=== PATIENT | male | born 1935 | race Native Hawaiian/Other Pacific Islander ===

== ENCOUNTER 2021-02-18 15:20 | Inpatient (IN) | payer OTHER ==
[~2021-02-18] VITALS: Ht 165.1 cm; Wt 64.9 kg
--- NOTE | 2021-02-18 17:18 | NUR ---
ELISA FROM SPEECH THERAPY IN ROOM WITH PT AT THIS TIME.
[2021-02-18 17:41] VITALS: BP 142/76; TEMP 97.4; Ht 165.1 cm; Wt 64.9 kg
[2021-02-18] MEDS ORDERED: AMLODIPINE BESYLATE PO (19:28)
[2021-02-18] MEDS ORDERED: ASA LOW DOSE81 MG PO (19:29)
[2021-02-18] MEDS ORDERED: LIPITOR40 MG PO (19:30)
[2021-02-18] MEDS ORDERED: CLOP75TA2 PO (19:31)
[2021-02-18] MEDS ORDERED: CARB25TA29 PO (19:31)
[2021-02-18] MEDS ORDERED: LISI20TA11 PO (19:32)
[2021-02-18] MEDS ORDERED: HYDR25TA60 PO (19:32)
[2021-02-18] MEDS ORDERED: KLOR-CON M1010 MEQ PO (19:33)
[2021-02-18] MEDS ORDERED: SPIR50TA8 PO (19:34)
[2021-02-18] MEDS ORDERED: AZILECT1 MG PO (19:35)
[2021-02-18] MEDS ORDERED: MELATONIN10 M1 PO (19:36)
[2021-02-18] MEDS ORDERED: CINNAMON500 MG PO (19:37)
[2021-02-18] MEDS ORDERED: VIT B12/FA PO (19:38)
[2021-02-18] MEDS ORDERED: VITAMIN D PO (19:39)
[2021-02-18] MEDS ORDERED: IRON (FERROUS S50 MG PO (19:41)
[2021-02-18 20:00] VITALS: BP 102/59; TEMP 98.4
--- NOTE | 2021-02-19 06:07 | NUR ---
New Swing Bed patient and is on a Mechanical Soft diet plan, diagnosis of Cerob infr C/T unsp. acclson, stenos, CVA R, PA Adm., Mechanical Thrombectomy, 5'5" at 157.7 and BMI at 26.2 and is overweiht and kcal needs for 65" = 136+/-10% (122 to 150 lbs.) and kcal needs x 25 to 40 = 1500 to 2500 kcal/day, protein needs x .8 to 1.5 = 49 to 93 grams per day and fluids for IBW x 25 to 40 = 1500 to 2500 ml/cc per day. Diagnosis of HTN, Hyperlipidemia, Parkinson's Disease and is a 85YOM and was transferred from [facility] in [place], [place] Per MD's notes is 5'9" at 174 and BMI = 25.69 and is overweight and IBW for 69" = 160+/-10% (144 to 176 lbs.) anf kcal needs x 25 to 40 = 1800 to 2900 ml/cc per day, protein needs x .8 to 1.5 = 58 to 109 grams per day and fluids for IBW = x 25 to 40 = 1800 to 2900 ml/cc per dya. Has arthritis, left facial drop, [facility] CVA, weakness and PT and OT are working wiht the D1Gnet and is on lasix, prophylasix, lipitor, cinnamon, Vitamin D, KCl, Plavix, FESO4 and etc... and RD reviewed all medications and labs and whole chart. K 3/4 depressed and see Labs in EMR for more inforamtion. RD Recommendations: 1-Monitor Labs 2-2 heights and weights may want to clarify height and weight 3-May want to add Low Fat Low Sodium to the diet order if the patient will follow and if will not follow 3-Have a dietary refusal form signed 4-Add a MVI if not eating 75% of meals 5-Add a supplement if not eating 75% of meals 6-Add an appetite stimulant if not eating 75% of meals 7-Add Vitamin C 500 mg BID 8-Add ZNSO4 220 mg per day and d/c in 14 days
[2021-02-19 08:00] VITALS: BP 141/69; TEMP 98.3
--- NOTE | 2021-02-19 08:30 | NUR ---
PATIENT REQUESTED TO HAVE AZILECT DOSE RETIMED FOR 6 PM WHEN HE NORMALLY TAKES IT.
--- NOTE | 2021-02-19 09:04 | NUR ---
PT CONDITION AND CHART REVIEWED WITH NO NEW ORDERS GIVEN AT THIS TIME
--- NOTE | 2021-02-19 15:00 | NUR ---
PT/OT AT BEDSIDE. PATIENT AMBULATED TO CHAIR WITH MINIMAL ASSISTANCE.
--- NOTE | 2021-02-19 15:45 | NUR ---
PATIENT TRANSFERRED BACK TO BED WITH MINIMAL ASSISTANCE. PATIENT TOLERATED WELL.
[2021-02-19 19:48] VITALS: BP 94/54; TEMP 97.3
--- NOTE | 2021-02-20 05:00 | NUR ---
PATIENT RESTING , SPOUSE AT BEDSIDE. PATIENT DENIES ANY PAIN OR DISCOMFORT
--- NOTE | 2021-02-20 06:28 | NUR ---
EYE CARE COMPLETE ON PATIENT. EYE DROPS APPLIED
--- NOTE | 2021-02-20 08:15 | NUR ---
PT AT BEDSIDE. PATIENT IN CHAIR PEDALING STATIONARY BIKE. PATIENT TOLERATED WELL. AT BEDSIDE. MORNING MEDICATIONS GIVEN CRUSHED IN PUDDING. CALL LIGHT WITHIN REACH. THERAPY TO LEAVE PATIENT IN CHAIR.
[2021-02-20 08:30] VITALS: BP 147/69; TEMP 98.3
--- NOTE | 2021-02-20 11:00 | NUR ---
PATIENT READY TO GO BACK TO BED. PATIENT TRANSFERRED WITH MINIMAL ASSISTANCE. PATIENT BALANCE SLIGHTLY UNSTEADY. PATIENT RESTING IN BED. NAD NOTED.
--- NOTE | 2021-02-20 18:05 | NUR ---
PATIENT RESTING IN BED. NAD NOTED. WILL CONTINUE TO MONITOR.
[2021-02-20 19:56] VITALS: BP 114/55; TEMP 98
[2021-02-21 08:00] VITALS: BP 158/63; TEMP 98.1
--- NOTE | 2021-02-21 15:45 | NUR ---
WHILE ASSISTING PT FROM BEDSIDE COMMODE, OBSERVED SPOTS OF BRIGHT RED BLOOD COMING FROM PENIS WHEN PT VOIDED. PT C/O NO PAIN OR DISCOMFORT. ALERT AND ORIENTED. AT BEDSIDE AT STATED THAT PT HAD THIS ISSUE WHEN HE WAS IN HOSPITAL IN [place]. WHILE IN [place] PT HAD HEMATURIA R/T LAWLER CATH. DR ELISE NOTIFIED AND ORDERED A CBC/BMP IN AM AND CONTINUE TO MONITOR PT AND IF BLEEDING CONTINUES OR WORSENS TO NOTIFY HER. 4X4 GAUZE APPLIED TO DECREASE BLEEDING. NAD NOTED.
[2021-02-21 20:17] VITALS: BP 123/66; TEMP 97.4
--- NOTE | 2021-02-21 21:00 | NUR ---
ENTERED PATIENT'S ROOM AT THIS TIME. PATIENT LYING IN BED WITH EYES CLOSED. IN LEFT SIDE-LYING POSITION. RESPIRATIONS EVEN AND UNLABORED. NAD NOTED. IN CHAIR AT BEDSIDE. PM MEDICATIONS MIXED IN APPLESAUCE. ASSISTING PATIENT TO STANDING POSITION WITH WALKER TO USE URINAL. TWO PERSON EXTENSIVE ASSIST REQUIRED. PATIENT HAS UNSTEADY GAIT WITH WEAKNESS TO LEFT UPPER AND LOWER EXTREMITY. SCANT AMOUNT OF HEMATURIA NOTED- WILL CONTINUE TO MONITOR. ASSISTED PATIENT TO SIT UP ON SIDE OF BED. CHECKED INSIDE OF PATIENT'S MOUTH FOR ANY POCKETING PER 'S REQUEST. PATIENT TOLERATED MEDS TAKEN IN APPLESAUCE. ASSISTED TO BED. PATIENT ABLE TO PERFORM BED MOBILITY WITH COACHING. NAD NOTED. FOUR SIDE RAILS UP PER 'S REQUEST. BED LOCKED AND IN LOWEST POSITION. CALL LIGHT WITHIN REACH.
--- NOTE | 2021-02-22 01:30 | NUR ---
PATIENT RESTING QUIETLY IN BED. RESPIRATIONS EVEN AND UNLABORED. EYES CLOSED. NAD NOTED. BED LOCKED AND IN LOWEST POSITION. CALL LIGHT WITHIN REACH. SLEEPING AT BEDSIDE.
--- NOTE | 2021-02-22 04:00 | NUR ---
IN TO CHECK ON PATIENT. PATIENT ATTEMPTING TO PULL HIMSELF UP OUT OF BED. I TALKED WITH HIM AND ADJUSTED HIS LINENS AND PILLOWS. PATIENT NOW LYING IN BED WITH EYES CLOSED. NAD NOTED. AWAKE AND AT BEDSIDE. I ENCOURAGED HER TO LET US USE THE BED ALARM. SHE AGREED. BED ALARM TURNED ON FOR PATIENT'S SAFETY. CALL LIGHT WITHIN REACH.
--- NOTE | 2021-02-22 05:00 | NUR ---
ASSISTED PATIENT AND WITH URINAL. BRIEF CHANGED. SMALL BM NOTED. NO HEMATURIA NOTED AT THIS TIME. BED LOCKED AND IN LOWEST POSITON. CALL LIGHT WITHIN REACH.
[2021-02-22 05:37] LABS: PLATELET COUNT 162 K/uL (142-355)
[2021-02-22 05:53] LABS: POTASSIUM 3.7 mmol/L (3.6-5.2)
[2021-02-22 08:00] VITALS: BP 126/80; TEMP 98
--- NOTE | 2021-02-22 13:11 | NUR ---
I met with patient and his on and they are very pleased with the program and the meals and no food preferences stated, all meals are delicious per the . I also met with the IDT meeting and was asleep and the stated she was please with all. She loves to talk and share.
--- NOTE | 2021-02-22 17:08 | NUR ---
PATIENT THROUGHOUT THE DAY HAS BEEN ABLE TO GET UP TO THE BEDSIDE TO A STANDING POSITION WHILE USING THE WALKER TO MAINTAIN STEADY GAIT AND TOLERATES STANDING POSITION FOR A FEW MINUTES AND THEN WITH CUEING HE IS ABLE TO SIT BACK IN THE BED AND REPOSITION HIMSELF UP IN THE BED MOSTLY USING HIS LEFT SIDE TO PUSH HIMSELF UP TO THE BED USING THE SIDERAILS FOR SUPPORT. PATIENT DID HAVE 2 EPISODES IN WHICH HIS ADULT BRIEF WAS MODERATLY WET AND ONE HAD A SCANT AMOUNT OF HEMATURIA NOTED. URINE IS ARGELIA WITH NO BLOOD CLOTS NOTED. PATIENT DID TAKE HIS MEDICATIONS WELL CRUSHED AND IN PUDDING WITH NO INCIDENT AND IS ABLE TO SWALLOW, SCANT AMOUNT OF WATER DOES DRIP ON THE RIGHT SIDE OF HIS MOUTH BUT STILL SWALLOWS. REMAINS AT THE BEDSIDE FOR ACTIVITY AND EMOTIONAL SUPPORT, PATIENT HAD SEVERAL FAMILY MEMBERS VISIT THROUGHOUT THE DAY. PATIENT REMAINED IN GOOD SPIRITS AND FOLLOWS ALL COMMANDS.
[2021-02-22 20:00] VITALS: BP 95/53; TEMP 98.1
--- NOTE | 2021-02-22 20:00 | NUR ---
IN PT'S ROOM FOR ASSESSMENT AND MED ADMINISTRATION. PT'S IS AT BEDSIDE. PT IS RESTING ON HIS LEFT SIDE WITH PINK WEDGE UNDER HIS BACK. BREATHING IS EVEN AND NONLABORED AND PT SHOWS NO SIGNS OF DISTRESS AT THIS TIME. PT'S MEDS WERE CRUSHED AND ADMINISTERED IN CHOCOLATE PUDDING. PT TOOK THE MEDICATION IN THE CHOCOLATE PUDDING AND SWALLOWED WITHOUT ANY DIFFICULTY.
--- NOTE | 2021-02-23 00:50 | NUR ---
PT'S ASKED AT BEDTIME IF WE COULD NOT ADMINISTER THE EYEDROPS AT THE 0100 AND 0500 SCHEDULED TIMES. PT'S DID NOT WANT TO WAKE HIM ONCE HE WAS ALREADY ASLEEP.
[2021-02-23 08:00] VITALS: BP 105/67; TEMP 97.7
--- NOTE | 2021-02-23 09:15 | NUR ---
IN PT RM FOR MORNING ASSESSMENT AND MORNING MED PASS, PT SITTING UP IN CHAIR EATING BREAKFAST WITH SITTING IN FRONT OF HIM ALSO EATING BREAKFAST, NAD NOTED, GIVING QUES WHEN NEEDED ON HOLDING HIS WATER CUP PROPERLY, PT CORRECTED HOLD, PT A&O X 3, PT HOLDING CUP WITH LT HAND WHEN INSTRUCTED PT TO USE RT HAND ALSO PT DIDNOT MOVE RT HAND TO HOLD CUP, PT TOOK CRUSHED MEDCATIONS IN PUDDING WITHOUT DIFFICULTY, NONLABORED BREATHING, ASSIISTED PT WITH CHANGING CLOTHES THIS AM, NO FURTHER NEEDS AT THISTIME, WILL CONTINUE TO MONITOR, CALLLIGHT WITHIN REACH
--- NOTE | 2021-02-23 17:30 | NUR ---
IN PT RM TO ADMINISTER MEDICATION AND EYE GTTS, PT SITTING UP IN CHAIR WITH AND FAMILY MEMBER IN THE RM, PT SWALLOWED MEDICATION IN PUDDING WIHTOU DIFFUCLTY, PT HELD CUP WIHTOUT ASSISTANCE TO DRINK WATER, LT SIDED FACIAL WEAKNESS NOTED WHEN DRINKING FROM [place], NO FURTHER NEEDS AT THIS TIME, CALL LIGHT WITHIN REACH, WILL CONTINUE TO MONITOR
[2021-02-23 20:00] VITALS: BP 105/57; TEMP 97.6
--- NOTE | 2021-02-24 02:38 | NUR ---
PTS CALLED AND STATED THAT PATIENT HAD GOTTEN OUT OF BED WHILE SHE WAS SLEEPING AND WALKED UNASSISTED ACROSS THE ROOM FROM HIS BED TO A CHAIR BY THE BATHROOM THEN SAT DOWN. INFORMATION ASSURANCE ANALYST AND TECH ASSISTED PT TO AMBULATE TO RECLINER WITH WALKER AND STANDBY ASSIST. PT SAT UP IN RECLINER APPROX 35MIN THEN ASKED FOR ASSISTANCE BACK TO BED. EDUCATION PROVIDED GAMBLING DEALER LIGHT USE WITH VERBAL UNDERSTANDING ACKNOWLEDGED. PT ASSISTED BACK TO BED WITH 1 PERSON +WALKER ASSIST. PT REQUIRES LIFT ASSIST GETTING OUT OF RECLINER AND MAY NEED CUSHION. PTS SPOUSE ADVISED TO NOTIFY STAFF WHEN SHE WAS ABOUT TO SLEEP SO BED ALARM COULD BE SET, SHE VERBALIZED UNDERSTANDING.
--- NOTE | 2021-02-24 05:41 | NUR ---
PT UP TO CHAIR WITH ASSIST PER SPOUSE.
[2021-02-24 08:00] VITALS: BP 92/60; TEMP 98.7
--- NOTE | 2021-02-24 11:26 | NUR ---
PT UP IN CHAIR WITH PT. PT TOLERATED MEDS WELL CRUSHED IN PUDDING. DENIES ANY PAIN OR DISCOMFORT. AT BEDSIDE. PT WILL AMBULATE TO BEDSIDE COMMODE WITH ASSISTANCE FROM STAFF.
[2021-02-24 19:51] VITALS: BP 95/47; TEMP 97.4
--- NOTE | 2021-02-24 20:45 | NUR ---
PT AMBULATED WITH USE OF WALKER. PT'S SUPERVISING. PT HAD LARGE BLACK SOLID STOOL. PT WAS CLEANED. PT AMBULATED BACK TO HIS CHAIR. PT SITTING UP IN CHAIR AND EATING HIS SUPPER. SUPERVISING.
--- NOTE | 2021-02-25 04:09 | NUR ---
PT WAS ASSISTED WITH USE OF URINAL. PT VOIDED APPROX 100 ML OF DARK URINE. BACK TO BED WITH ONE PERSON ASSIST. SAFETY RAIL X 2 UP. BED ALARM IS ON. AT BEDSIDE.
--- NOTE | 2021-02-25 05:38 | NUR ---
PT UP OUT OF BED SITTING IN RECLINER. SITTING UP ALSO. PT AND WERE SERVED COFFEE. PT IS DRINK NUTRITIONAL SHAKE AT PRESENT.
--- NOTE | 2021-02-25 06:11 | NUR ---
AM MED WAS CRUSH AND PUT IN CHOCALATE. PT'S IS ASSITING PT WITH AM HYGIENE CARE.
[2021-02-25 08:00] VITALS: BP 99/55; TEMP 99.1
[2021-02-25 19:57] VITALS: BP 104/51; TEMP 97.6
--- NOTE | 2021-02-25 23:57 | NUR ---
PT IS RESTING WITH HIS . PT SWING BED STATUS. PT TOOK PM MEDICATIONS WITHOUT DIFFICULTY SWALLOWING. MEDS WERE CRUSHED AND GIVEN WITH CHOCALATE PUDDING. INSTRUCTED MRS. MACIAS TO CALL FOR ANY ASSISTANCE NEEDED,
--- NOTE | 2021-02-26 07:45 | NUR ---
PT SITTING UP IN CHAIR AT BEDSIDE. PT'S AT BEDSIDE. PT'S STATES "HE HAS ALREADY BATHED AND SHAVED THIS MORNING" PT DENIES ANY C/O OR NEEDS AT THIS TIME.
[2021-02-26 08:00] VITALS: BP 115/52; TEMP 97.8
--- NOTE | 2021-02-26 11:25 | NUR ---
PT UP AMBULATING IN [place] BY NURSES STATION USING CONSTANZA, PT WITH PT. MINIMAL ASSISTANCE NOTED.
--- NOTE | 2021-02-26 19:27 | NUR ---
FAMILY MEMBERS AT BEDSIDE, DAUGHTER ASSISTING PT WITH TRANSFER FROM CHAIR TO BED, PT KOREY WELL, REQUIRES CUEING AND FURNITURE/ STANDBY ASSIST. NO NEEDS VERBALIZED AT THIS TIME. CALL LIGHT IN EASY REACH. WILL CONTINUE TO MONITOR.
[2021-02-26 20:00] VITALS: BP 94/55; TEMP 97.3
--- NOTE | 2021-02-26 20:37 | NUR ---
REVIEWED PT'S BP MEDS AT SPOUSE REQUEST- UPDATE GIVEN ON WHAT BP MEDS WERE ADJUSTED/STOPPED AND REASON WHY. ALSO DISCUSSED WITH HER ABOUT PT'S AZILECT (RASAGILINE) - ONLY 12 TABS LEFT. SHE STATES SHE GETS THEM FROM [facility]. WILL NOTIFY [facility] THAT PATIENT ONLY HAS 12 TABS LEFT.
== END 2021-03-09 08:10 | disposition home health service (06) | DRG 66 ==
LOC: MED/SURG 15:20
PROVIDERS: Internal Medicine; ADMIT Internal Medicine Endocrinology, Diabetes & Metabolism; ATTEND Internal Medicine Endocrinology, Diabetes & Metabolism
DX: I63.511 Cerebral infarction due to unspecified occlusion or stenosis of right middle cerebral artery (principal); I69.391 Dysphagia following cerebral infarction; R13.11 Dysphagia, oral phase; I69.322 Dysarthria following cerebral infarction; M62.81 Muscle weakness (generalized); R27.8 Other lack of coordination; Z74.1 Need for assistance with personal care; R26.81 Unsteadiness on feet; G20 Parkinson's disease; I10 Essential (primary) hypertension; Z91.81 History of falling; I69.392 Facial weakness following cerebral infarction; E78.00 Pure hypercholesterolemia, unspecified
CPT/HCPCS: 36415; 80048; 84132; 85027; 87081; 87635; U0003

== ENCOUNTER 2022-01-30 13:50 | Inpatient (IN) | payer OTHER ==
[~2022-01-30] VITALS: Ht 165.1 cm; Wt 71.0 kg
[~2022-01-30 13:50] MED LIST: AMLODIPINE BESYLATE PO; ASA LOW DOSE81 MG PO; AZILECT1 MG PO; CARB25TA29 PO; CINNAMON500 MG PO; CLOP75TA2 PO; HYDR25TA60 PO; IRON (FERROUS S50 MG PO; KLOR-CON M1010 MEQ PO; LEVE500T5 PO; LIPITOR40 MG PO; LISI20TA11 PO; MELATONIN10 M1 PO; SPIR50TA8 PO; VIT B12/FA PO; VITAMIN D PO
[2022-01-30 20:48] VITALS: BP 111/53; BP 142/76; TEMP 97.4; TEMP 98.1; BMI 25.3; BMI 26.2
[2022-01-31 20:08] VITALS: BP 143/63; TEMP 97.4
[2022-02-01 07:54] VITALS: BP 139/66; TEMP 97.8
[2022-02-01 20:11] VITALS: BP 103/54; TEMP 97.6
[2022-02-02 09:12] VITALS: BP 125/63; TEMP 98.2
[2022-02-02 17:35] VITALS: BP 142/94; TEMP 98.1; BMI 42.1
[2022-02-02 20:00] VITALS: BP 130/64; TEMP 97.7
[2022-02-03 08:00] VITALS: BP 103/53; TEMP 98.1
[2022-02-03] MEDS ORDERED: LISI10TA11 PO (11:33)
[2022-02-03] MEDS ORDERED: DOCU100C10 PO (11:37)
[2022-02-03] MEDS ORDERED: ELIQUIS5 MG PO (11:39)
[2022-02-03] MEDS ORDERED: FURO20TA67 PO (11:43)
[2022-02-03] MEDS ORDERED: B-1250 MCG PO (11:43)
[2022-02-03 19:50] VITALS: BP 124/47; TEMP 98.2
[2022-02-04 19:55] VITALS: BP 102/52; TEMP 97.9
[2022-02-05 08:00] VITALS: BP 113/77; TEMP 98.4
[2022-02-05 20:00] VITALS: BP 102/44; TEMP 97.8
[2022-02-06 20:00] VITALS: BP 125/62; TEMP 98.4
[2022-02-07 13:45] LABS: PLATELET COUNT 322 K/uL (142-355)
[2022-02-07 14:00] LABS: POTASSIUM 5.5 mmol/L (3.6-5.2)
[2022-02-07 20:00] VITALS: BP 126/60; TEMP 98
[2022-02-08 03:50] VITALS: BP 109/54
[2022-02-08 04:00] VITALS: BP 109/54
[2022-02-08 05:30] VITALS: BP 132/62
[2022-02-08 08:00] VITALS: BP 115/64; TEMP 97
[2022-02-08 20:00] VITALS: BP 105/47; TEMP 98
[2022-02-09 03:45] VITALS: BP 138/68
[2022-02-09 08:06] VITALS: BP 116/65; TEMP 98.9
[2022-02-09 19:43] VITALS: BP 114/65
[2022-02-10 05:52] LABS: POTASSIUM 3.8 mmol/L (3.6-5.2)
[2022-02-10 19:34] VITALS: BP 112/57; TEMP 98.2
[2022-02-11 19:37] VITALS: BP 127/53; TEMP 98.6
[2022-02-12 20:00] VITALS: BP 121/49; TEMP 98.6
[2022-02-13 19:50] VITALS: BP 127/63; TEMP 98.5
[2022-02-14 08:00] VITALS: BP 127/59; TEMP 98.5
[2022-02-14 19:45] VITALS: BP 120/51; TEMP 97.6
[2022-02-15 19:46] VITALS: BP 124/60; TEMP 98.1
[2022-02-16 08:00] VITALS: BP 165/79; TEMP 97.7
[2022-02-17 08:22] VITALS: BP 146/71; TEMP 98.5
[2022-02-17 20:00] VITALS: BP 143/67; TEMP 98.3
[2022-02-18 08:01] VITALS: BP 114/61; TEMP 98.8
== END 2022-02-18 09:27 | disposition home health service (06) | DRG 56 ==
LOC: SWING 13:50 → MED/SURG 19:59
PROVIDERS: Internal Medicine; ADMIT Internal Medicine; ATTEND Internal Medicine
DX: I69.391 Dysphagia following cerebral infarction (principal); R13.11 Dysphagia, oral phase; I69.322 Dysarthria following cerebral infarction; M62.81 Muscle weakness (generalized); R27.8 Other lack of coordination; Z74.1 Need for assistance with personal care; R26.81 Unsteadiness on feet; G20 Parkinson's disease; D69.6 Thrombocytopenia, unspecified; I10 Essential (primary) hypertension; Z91.81 History of falling; I69.392 Facial weakness following cerebral infarction; F02.80 Dementia in other diseases classified elsewhere, unspecified severity, without behavioral disturbance, psychotic disturbance, mood disturbance, and anxiety; R26.2 Difficulty in walking, not elsewhere classified; R13.12 Dysphagia, oropharyngeal phase; R48.8 Other symbolic dysfunctions; W17.89XD Other fall from one level to another, subsequent encounter; S22.43XD Multiple fractures of ribs, bilateral, subsequent encounter for fracture with routine healing; S63.251D Unspecified dislocation of left index finger, subsequent encounter; E53.8 Deficiency of other specified B group vitamins; E78.00 Pure hypercholesterolemia, unspecified; I63.511 Cerebral infarction due to unspecified occlusion or stenosis of right middle cerebral artery
CPT/HCPCS: 36415; 80053; 82533; 85027; 87081; 87635; J0834; U0003